=== PATIENT | female | born 1950 | race Caucasian/White ===

== ENCOUNTER → 2023-04-07 15:38 | Outpatient (REF) | payer MEDICARE, OTHER, SELFPAY | LOC: WDC 15:38 | PROVIDERS: ATTENDING PHYSICIAN Family Medicine | DX: S80.02XD Contusion of left knee, subsequent encounter (principal); Z12.31 Encounter for screening mammogram for malignant neoplasm of breast | CPT/HCPCS: 73564; 77063; 77067 ==

== ENCOUNTER → 2023-04-07 17:11 | Outpatient (REF) | payer MEDICARE, OTHER, SELFPAY | LOC: MRI 3T 17:11 | PROVIDERS: ATTENDING PHYSICIAN Family Medicine | DX: R29.6 Repeated falls (principal) | CPT/HCPCS: 70553; A9575 ==

== ENCOUNTER → 2024-08-17 13:20 | Outpatient (REF) | payer MEDICARE, OTHER, SELFPAY | LOC: CRHB 13:20 | PROVIDERS: FAMILY PHYSICIAN Family Medicine | DX: M47.816 Spondylosis without myelopathy or radiculopathy, lumbar region (principal) | CPT/HCPCS: 72100 ==